=== PATIENT | male | born 1955 | race Caucasian/White ===

== ENCOUNTER 2018-11-24 18:14 | Inpatient (IN) | payer BC ==
[2018-11-24] MEDS ORDERED: ACETAMINOPHEN 325 MG TAB PO (20:00)
[2018-11-24] MEDS ORDERED: hydrALAzine 20 MG INJ IV (20:00)
[2018-11-24] MEDS ORDERED: GLUCOSE GEL 15 GRAM TUBE BUCCAL (21:00)
[2018-11-24] MEDS: INSULIN ASPART [NOVOLOG] 3 ML PEN SC (21:00)
[2018-11-24] MEDS ORDERED: GLUCOSE GEL 15 GRAM TUBE PO ×2 (21:00)
[2018-11-24] MEDS ORDERED: GLUCAGON 1 MG INJ IM (21:00)
[2018-11-24] MEDS ORDERED: DEXTROSE 50% 50 ML SYRINGE IV ×2 (21:00)
[2018-11-24 21:26] LABS: CHOL/HDL RATIO 6.8 RATIO; HDL CHOLESTEROL 41 mg/dl (30-78); LDL CHOLESTEROL,CALCULATED 198 mg/dl; TRIGLYCERIDES 210 mg/dl (0-149)
[2018-11-24 21:26] LABS: CHOLESTEROL 281 mg/dl (100-200)
[2018-11-24] MEDS: DEXTROSE 5%-0.9% NACL 1,000 ML IV (23:14)
[2018-11-25] MEDS: INSULIN ASPART [NOVOLOG] 3 ML PEN SC ×5 (01:00→16:16)
[2018-11-25 02:09] LABS: TROPONIN-I 0.013 ng/ml (0.000-0.120)
[2018-11-25] MEDS: PANTOPRAZOLE 40 MG INJ IV (05:49)
[2018-11-25 06:49] LABS: TROPONIN-I < 0.012 ng/ml (0.000-0.120)
[2018-11-25] MEDS: ACCU-CHEK XX ×3 (07:00→16:10)
[2018-11-25] MEDS: ASPIRIN 81 MG TAB PO (09:00)
[2018-11-25] MEDS: DEXTROSE 5%-0.9% NACL 1,000 ML IV (09:35)
[2018-11-25 12:37] LABS: TROPONIN-I < 0.012 ng/ml (0.000-0.120)
[2018-11-25] MEDS: ASPIRIN (EC) 81 MG TAB PO (16:10)
[2018-11-25] MEDS: LISINOPRIL 20 MG TAB PO (16:10)
[2018-11-25] MEDS: LINAGLIPTIN 5 MG TABLET PO (16:10)
[2018-11-25] MEDS: MUPIROCIN 2% 22 GM OINT TOP ×2 (16:46→20:21)
[2018-11-25] MEDS: ATORVASTATIN 40 MG TAB PO (20:20)
[2018-11-25] MEDS: INSULIN GLARGINE [LANTus] (100 UNITS/ML) SYG SC (20:26)
[2018-11-26] MEDS: PANTOPRAZOLE (EC) 40 MG TAB PO (05:04)
[2018-11-26 06:34] LABS: ADD MAN DIFF? NO
[2018-11-26 06:43] LABS: BASOPHILS % 0.6 % (0.0-2.0); EOSINOPHILS # 0.1 10^3/ul (0.0-0.5); EOSINOPHILS % 2.3 % (0.0-7.0); HEMATOCRIT 43.9 % (42.0-52.0); HEMOGLOBIN 14.2 g/dl (14.0-18.0); LYMPHOCYTES # 1.2 10^3/ul (0.8-2.9); LYMPHOCYTES % 21.8 % (15.0-51.0); MEAN CORPUSCULAR HEMOGLOBIN 26.3 pg (29.0-33.0); MEAN CORPUSCULAR HGB CONC 32.3 g/dl (32.0-37.0); MEAN CORPUSCULAR VOLUME 81.3 fl (82.0-101.0); MEAN PLATELET VOLUME 10.2 fl (7.4-10.4); MONOCYTE # 0.4 10^3/ul (0.3-0.9); NEUTROPHIL # 3.6 10^3/ul (1.6-7.5); NEUTROPHILS % 67.7 % (39.0-77.0); PLATELET COUNT 198 10^3/UL (140-415); RED CELL DISTRIBUTION WIDTH 14.7 % (11.5-14.5)
[2018-11-26 06:43] LABS: WHITE BLOOD COUNT 5.3 10^3/ul (4.8-10.8)
[2018-11-26 07:13] LABS: HEMOGLOBIN A1C 9.5 % (0-5.9)
[2018-11-26 07:15] LABS: ANION GAP 10 (5-13); BLOOD UREA NITROGEN 25 mg/dl (7-20); CALCIUM 9.3 mg/dl (8.4-10.2); CARBON DIOXIDE 25 mmol/L (21-31); CHLORIDE 106 mmol/L (97-110); CREATININE 1.32 mg/dl (0.61-1.24); Estimated GFR 54 mL/min (>60); GLUCOSE 215 mg/dl (70-220); POTASSIUM 4.3 mmol/L (3.5-5.1); SODIUM 141 mmol/L (135-144)
[2018-11-26] MEDS: ACCU-CHEK XX ×3 (07:51→17:24)
[2018-11-26] MEDS ORDERED: metFORMIN 500 MG TAB PO (08:00)
[2018-11-26] MEDS: ASPIRIN 81 MG TAB PO ×2 (08:10→09:00)
[2018-11-26] MEDS: LINAGLIPTIN 5 MG TABLET PO (08:10)
[2018-11-26] MEDS: ASPIRIN (EC) 81 MG TAB PO (08:10)
[2018-11-26] MEDS: CLOPIDOGREL 75 MG TAB PO (08:10)
[2018-11-26] MEDS: INSULIN ASPART [NOVOLOG] 3 ML PEN SC ×3 (08:13→17:24)
[2018-11-26] MEDS: METOPROLOL (XL) 100 MG TAB PO (09:00)
[2018-11-26] MEDS: LISINOPRIL 20 MG TAB PO (09:00)
[2018-11-26] MEDS: MUPIROCIN 2% 22 GM OINT TOP ×2 (09:59→21:40)
[2018-11-26] MEDS: ATORVASTATIN 40 MG TAB PO (21:39)
[2018-11-26] MEDS: INSULIN GLARGINE [LANTus] (100 UNITS/ML) SYG SC (21:42)
[2018-11-27] MEDS: PANTOPRAZOLE (EC) 40 MG TAB PO (06:34)
[2018-11-27] MEDS: INSULIN ASPART [NOVOLOG] 3 ML PEN SC ×2 (06:50→12:10)
[2018-11-27] MEDS: ACCU-CHEK XX ×2 (07:19→12:08)
[2018-11-27] MEDS: LISINOPRIL 10 MG TAB PO (08:11)
[2018-11-27] MEDS: METOPROLOL (XL) 50 MG TAB PO (08:12)
[2018-11-27] MEDS: CLOPIDOGREL 75 MG TAB PO (08:12)
[2018-11-27] MEDS: LINAGLIPTIN 5 MG TABLET PO (08:12)
[2018-11-27] MEDS: MUPIROCIN 2% 22 GM OINT TOP (08:13)
[2018-11-27] MEDS: ASPIRIN 81 MG TAB PO (08:13)
[2018-11-27] MEDS ORDERED: INSULIN ASPART [NOVOLOG] 3 ML PEN SC (18:00)
[2018-11-27] MEDS ORDERED: INSULIN GLARGINE [LANTus] (100 UNITS/ML) SYG SC (21:00)
[2018-11-28] MEDS ORDERED: ACCU-CHEK XX (02:00)
== END 2018-11-27 16:43 | DRG 66 ==
LOC: 6WM 18:14
PROVIDERS: Internal Medicine Nephrology
DX: I63.9 Cerebral infarction, unspecified (principal); E11.22 Type 2 diabetes mellitus with diabetic chronic kidney disease; E11.42 Type 2 diabetes mellitus with diabetic polyneuropathy; I10 Essential (primary) hypertension; I12.9 Hypertensive chronic kidney disease with stage 1 through stage 4 chronic kidney disease, or unspecified chronic kidney disease; N18.9 Chronic kidney disease, unspecified; I25.10 Atherosclerotic heart disease of native coronary artery without angina pectoris; E78.5 Hyperlipidemia, unspecified; E66.9 Obesity, unspecified; Z68.30 Body mass index [BMI] 30.0-30.9, adult; Z79.4 Long term (current) use of insulin; Z79.82 Long term (current) use of aspirin; Z95.1 Presence of aortocoronary bypass graft
CPT/HCPCS: 70551; 80048; 80061; 82962; 83036; 84484; 85025; 92526; 92610; 93005; 93306; 93880; 95819; 97116; 97161; 97167; 97530

== ENCOUNTER 2018-11-27 16:58 | Inpatient (IN) | payer BC ==
[2018-11-27] MEDS ORDERED: PENDING SANTYL ORDER FOR WOUND CARE XX (17:30)
[2018-11-27] MEDS ORDERED: BISACODYL 10 MG SUPP PR (17:30)
[2018-11-27] MEDS ORDERED: GLUCAGON 1 MG INJ IM (18:00)
[2018-11-27] MEDS ORDERED: hydrALAzine 20 MG INJ IV (18:00)
[2018-11-27] MEDS ORDERED: GLUCOSE GEL 15 GRAM TUBE PO ×2 (18:00)
[2018-11-27] MEDS: INSULIN ASPART [NOVOLOG] 3 ML PEN SC (21:00)
[2018-11-27] MEDS: INSULIN GLARGINE [LANTus] (100 UNITS/ML) SYG SC (21:01)
[2018-11-27] MEDS: MUPIROCIN 2% 22 GM OINT TOP (21:01)
[2018-11-27] MEDS: ACCU-CHEK XX (21:01)
[2018-11-27] MEDS: ATORVASTATIN 40 MG TAB PO (21:02)
[2018-11-27] MEDS: DOCUSATE SODIUM 100 MG CAP PO (21:02)
[2018-11-27] MEDS: SENNA TAB PO (21:02)
[2018-11-27] MEDS: ACETAMINOPHEN 325 MG TAB PO (22:19)
[2018-11-28] MEDS: ACCU-CHEK XX ×5 (02:30→21:31)
[2018-11-28] MEDS: PANTOPRAZOLE (EC) 40 MG TAB PO (05:56)
[2018-11-28 06:54] LABS: ADD MAN DIFF? NO
[2018-11-28 06:58] LABS: WHITE BLOOD COUNT 4.6 10^3/ul (4.8-10.8)
[2018-11-28 06:58] LABS: BASOPHILS % 0.7 % (0.0-2.0); EOSINOPHILS # 0.2 10^3/ul (0.0-0.5); EOSINOPHILS % 3.7 % (0.0-7.0); HEMATOCRIT 44.1 % (42.0-52.0); HEMOGLOBIN 14.3 g/dl (14.0-18.0); LYMPHOCYTES # 1.3 10^3/ul (0.8-2.9); LYMPHOCYTES % 28.9 % (15.0-51.0); MEAN CORPUSCULAR HGB CONC 32.4 g/dl (32.0-37.0); MONOCYTE # 0.4 10^3/ul (0.3-0.9); MONOCYTES % 9.6 % (0.0-11.0); NEUTROPHIL # 2.6 10^3/ul (1.6-7.5); NEUTROPHILS % 56.4 % (39.0-77.0); PLATELET COUNT 202 10^3/UL (140-415); RED BLOOD COUNT 5.51 10^6/ul (4.70-6.10); RED CELL DISTRIBUTION WIDTH 14.6 % (11.5-14.5)
[2018-11-28 07:29] LABS: ALANINE AMINOTRANSFERASE 22 IU/L (13-69); ALKALINE PHOSPHATASE 56 IU/L (42-121); ANION GAP 9 (5-13); ASPARTATE AMINO TRANSFERASE 21 IU/L (15-46); BILIRUBIN,INDIRECT 0.6 mg/dl (0-1.1); BILIRUBIN,TOTAL 0.6 mg/dl (0.2-1.3); BLOOD UREA NITROGEN 29 mg/dl (7-20); CALCIUM 9.4 mg/dl (8.4-10.2); CARBON DIOXIDE 25 mmol/L (21-31); CHLORIDE 105 mmol/L (97-110); CREATININE 1.19 mg/dl (0.61-1.24); Estimated GFR > 60 mL/min (>60); GLUCOSE 256 mg/dl (70-220); POTASSIUM 4.5 mmol/L (3.5-5.1); SODIUM 139 mmol/L (135-144)
[2018-11-28 07:30] LABS: ALBUMIN 3.9 g/dl (3.3-4.9); ALBUMIN/GLOBULIN RATIO 1.11; TOTAL PROTEIN 7.4 g/dl (6.1-8.1)
[2018-11-28] MEDS: INSULIN ASPART [NOVOLOG] 3 ML PEN SC ×7 (08:23→21:26)
[2018-11-28] MEDS: LINAGLIPTIN 5 MG TABLET PO (08:30)
[2018-11-28] MEDS: LISINOPRIL 10 MG TAB PO (08:32)
[2018-11-28] MEDS: CLOPIDOGREL 75 MG TAB PO (08:32)
[2018-11-28] MEDS: ASPIRIN 81 MG TAB PO (08:32)
[2018-11-28] MEDS: DOCUSATE SODIUM 100 MG CAP PO ×2 (08:32→21:26)
[2018-11-28] MEDS: METOPROLOL (XL) 50 MG TAB PO (08:33)
[2018-11-28] MEDS: MUPIROCIN 2% 22 GM OINT TOP ×2 (08:33→21:26)
[2018-11-28 14:00] LABS: ADD UMIC YES; UR ASCORBIC ACID NEGATIVE (NEGATIVE); UR BILIRUBIN (Dip) NEGATIVE (NEGATIVE); UR BLOOD (Dip) 1+ mg/dL (NEGATIVE); UR CLARITY CLEAR (CLEAR); UR COLOR YELLOW (YELLOW); UR GLUCOSE (Dip) 1+ mg/dL (NEGATIVE); UR KETONES (Dip) NEGATIVE (NEGATIVE); UR LEUKOCYTE ESTERASE (Dip) NEGATIVE Leu/ul (NEGATIVE); UR NITRITE (Dip) NEGATIVE (NEGATIVE); UR RBC 1 /HPF (0-5); UR SPECIFIC GRAVITY (Dip) 1.017 (1.003-1.030); UR TOTAL PROTEIN (Dip) 3+ mg/dl (NEGATIVE); UR UROBILINOGEN (Dip) NEGATIVE (NEGATIVE); UR WBC 0 /HPF (0-5)
[2018-11-28] MEDS: BALSAM PERU/CASTOR OIL 60 GM TUBE TOP (17:58)
[2018-11-28] MEDS: INSULIN GLARGINE [LANTus] (100 UNITS/ML) SYG SC (21:26)
[2018-11-28] MEDS: ATORVASTATIN 40 MG TAB PO (21:26)
[2018-11-28] MEDS: SENNA TAB PO (21:26)
[2018-11-29] MEDS: MAGNESIUM HYDROXIDE 30ML CUP PO (00:38)
[2018-11-29] MEDS: ACCU-CHEK XX ×5 (02:07→20:49)
[2018-11-29] MEDS: PANTOPRAZOLE (EC) 40 MG TAB PO (05:35)
[2018-11-29] MEDS: INSULIN ASPART [NOVOLOG] 3 ML PEN SC ×7 (08:02→20:41)
[2018-11-29] MEDS: LINAGLIPTIN 5 MG TABLET PO (08:15)
[2018-11-29] MEDS: CLOPIDOGREL 75 MG TAB PO (08:18)
[2018-11-29] MEDS: MUPIROCIN 2% 22 GM OINT TOP ×2 (08:18→21:50)
[2018-11-29] MEDS: DOCUSATE SODIUM 100 MG CAP PO ×2 (08:19→20:48)
[2018-11-29] MEDS: BALSAM PERU/CASTOR OIL 60 GM TUBE TOP (08:20)
[2018-11-29] MEDS: ASPIRIN 81 MG TAB PO (08:20)
[2018-11-29] MEDS: METOPROLOL (XL) 50 MG TAB PO ×2 (08:21→13:25)
[2018-11-29] MEDS: LISINOPRIL 10 MG TAB PO ×2 (08:22→13:25)
[2018-11-29] MEDS: INSULIN GLARGINE [LANTus] (100 UNITS/ML) SYG SC (20:42)
[2018-11-29] MEDS: ATORVASTATIN 40 MG TAB PO (20:43)
[2018-11-29] MEDS: SENNA TAB PO (20:49)
[2018-11-30] MEDS: ACCU-CHEK XX ×5 (02:32→20:31)
[2018-11-30] MEDS: LACTULOSE 30ML CUP PO (04:13)
[2018-11-30] MEDS: PANTOPRAZOLE (EC) 40 MG TAB PO (05:36)
[2018-11-30] MEDS: metFORMIN 500 MG TAB PO ×2 (07:58→17:29)
[2018-11-30] MEDS: INSULIN ASPART [NOVOLOG] 3 ML PEN SC ×7 (08:00→20:30)
[2018-11-30] MEDS: LINAGLIPTIN 5 MG TABLET PO (08:23)
[2018-11-30] MEDS: CLOPIDOGREL 75 MG TAB PO (08:23)
[2018-11-30] MEDS: DOCUSATE SODIUM 100 MG CAP PO ×2 (08:23→20:28)
[2018-11-30] MEDS: ASPIRIN 81 MG TAB PO (08:24)
[2018-11-30] MEDS: LISINOPRIL 10 MG TAB PO (09:00)
[2018-11-30] MEDS: METOPROLOL (XL) 50 MG TAB PO (09:00)
[2018-11-30] MEDS: BALSAM PERU/CASTOR OIL 60 GM TUBE TOP (09:28)
[2018-11-30] MEDS: MUPIROCIN 2% 22 GM OINT TOP ×2 (09:28→20:36)
[2018-11-30] MEDS: ATORVASTATIN 40 MG TAB PO (20:28)
[2018-11-30] MEDS: SENNA TAB PO (20:28)
[2018-11-30] MEDS: INSULIN GLARGINE [LANTus] (100 UNITS/ML) SYG SC (20:31)
[2018-12-01] MEDS: ACCU-CHEK XX ×5 (02:36→20:32)
[2018-12-01] MEDS: PANTOPRAZOLE (EC) 40 MG TAB PO (06:01)
[2018-12-01 07:09] LABS: ADD MAN DIFF? NO
[2018-12-01 07:11] LABS: WHITE BLOOD COUNT 6.9 10^3/ul (4.8-10.8)
[2018-12-01 07:11] LABS: BASOPHILS % 0.4 % (0.0-2.0); EOSINOPHILS # 0.2 10^3/ul (0.0-0.5); EOSINOPHILS % 2.3 % (0.0-7.0); HEMATOCRIT 46.7 % (42.0-52.0); HEMOGLOBIN 14.8 g/dl (14.0-18.0); LYMPHOCYTES # 1.9 10^3/ul (0.8-2.9); MEAN CORPUSCULAR HEMOGLOBIN 26.2 pg (29.0-33.0); MEAN CORPUSCULAR HGB CONC 31.7 g/dl (32.0-37.0); MEAN CORPUSCULAR VOLUME 82.8 fl (82.0-101.0); MEAN PLATELET VOLUME 10.4 fl (7.4-10.4); MONOCYTE # 0.3 10^3/ul (0.3-0.9); MONOCYTES % 4.6 % (0.0-11.0); NEUTROPHIL # 4.4 10^3/ul (1.6-7.5); PLATELET COUNT 217 10^3/UL (140-415); RED BLOOD COUNT 5.64 10^6/ul (4.70-6.10)
[2018-12-01 07:29] LABS: ANION GAP 10 (5-13); BLOOD UREA NITROGEN 45 mg/dl (7-20); CALCIUM 9.6 mg/dl (8.4-10.2); CARBON DIOXIDE 31 mmol/L (21-31); CHLORIDE 99 mmol/L (97-110); CREATININE 1.68 mg/dl (0.61-1.24); Estimated GFR 41 mL/min (>60); GLUCOSE 222 mg/dl (70-220); POTASSIUM 4.4 mmol/L (3.5-5.1); SODIUM 140 mmol/L (135-144)
[2018-12-01] MEDS: INSULIN ASPART [NOVOLOG] 3 ML PEN SC ×7 (07:59→20:26)
[2018-12-01] MEDS: metFORMIN 500 MG TAB PO ×2 (08:00→17:50)
[2018-12-01] MEDS: METOPROLOL (XL) 50 MG TAB PO (08:01)
[2018-12-01] MEDS: ASPIRIN 81 MG TAB PO (08:01)
[2018-12-01] MEDS: DOCUSATE SODIUM 100 MG CAP PO ×2 (08:01→20:23)
[2018-12-01] MEDS: CLOPIDOGREL 75 MG TAB PO (08:01)
[2018-12-01] MEDS: LINAGLIPTIN 5 MG TABLET PO (08:02)
[2018-12-01] MEDS: MUPIROCIN 2% 22 GM OINT TOP ×2 (08:02→20:32)
[2018-12-01] MEDS: LISINOPRIL 5 MG TAB PO (08:02)
[2018-12-01] MEDS: BALSAM PERU/CASTOR OIL 60 GM TUBE TOP (08:02)
[2018-12-01] MEDS: ENOXAPARIN 40 MG/0.4 ML SYG SC (08:18)
[2018-12-01] MEDS: SENNA TAB PO (20:23)
[2018-12-01] MEDS: ATORVASTATIN 40 MG TAB PO (20:23)
[2018-12-01] MEDS: INSULIN GLARGINE [LANTus] (100 UNITS/ML) SYG SC (20:27)
[2018-12-02] MEDS: ACCU-CHEK XX ×5 (02:04→20:20)
[2018-12-02] MEDS: PANTOPRAZOLE (EC) 40 MG TAB PO (06:01)
[2018-12-02 06:59] LABS: ADD UMIC YES; UR ASCORBIC ACID NEGATIVE (NEGATIVE); UR BILIRUBIN (Dip) NEGATIVE (NEGATIVE); UR BLOOD (Dip) NEGATIVE (NEGATIVE); UR CLARITY CLEAR (CLEAR); UR COLOR YELLOW (YELLOW); UR GLUCOSE (Dip) NEGATIVE (NEGATIVE); UR KETONES (Dip) NEGATIVE (NEGATIVE); UR LEUKOCYTE ESTERASE (Dip) NEGATIVE Leu/ul (NEGATIVE); UR MUCUS FEW /HPF (NONE SEEN); UR NITRITE (Dip) NEGATIVE (NEGATIVE); UR RBC 0 /HPF (0-5); UR SPECIFIC GRAVITY (Dip) 1.016 (1.003-1.030); UR TOTAL PROTEIN (Dip) 2+ mg/dl (NEGATIVE); UR UROBILINOGEN (Dip) NEGATIVE (NEGATIVE); UR WBC 0 /HPF (0-5)
[2018-12-02 07:21] LABS: ADD MAN DIFF? NO
[2018-12-02 07:24] LABS: BASOPHILS % 0.6 % (0.0-2.0); EOSINOPHILS # 0.2 10^3/ul (0.0-0.5); EOSINOPHILS % 2.9 % (0.0-7.0); HEMATOCRIT 46.1 % (42.0-52.0); HEMOGLOBIN 14.5 g/dl (14.0-18.0); LYMPHOCYTES # 1.5 10^3/ul (0.8-2.9); LYMPHOCYTES % 29.6 % (15.0-51.0); MEAN CORPUSCULAR HEMOGLOBIN 26.1 pg (29.0-33.0); MEAN CORPUSCULAR HGB CONC 31.5 g/dl (32.0-37.0); MEAN CORPUSCULAR VOLUME 83.1 fl (82.0-101.0); MEAN PLATELET VOLUME 10.6 fl (7.4-10.4); MONOCYTE # 0.3 10^3/ul (0.3-0.9); MONOCYTES % 6.3 % (0.0-11.0); NEUTROPHIL # 3.1 10^3/ul (1.6-7.5); NEUTROPHILS % 59.8 % (39.0-77.0); PLATELET COUNT 214 10^3/UL (140-415); RED BLOOD COUNT 5.55 10^6/ul (4.70-6.10); RED CELL DISTRIBUTION WIDTH 15.3 % (11.5-14.5)
[2018-12-02 07:24] LABS: WHITE BLOOD COUNT 5.2 10^3/ul (4.8-10.8)
[2018-12-02] MEDS: INSULIN ASPART [NOVOLOG] 3 ML PEN SC ×7 (07:35→20:03)
[2018-12-02 07:46] LABS: ANION GAP 8 (5-13); BLOOD UREA NITROGEN 39 mg/dl (7-20); CALCIUM 9.7 mg/dl (8.4-10.2); CARBON DIOXIDE 30 mmol/L (21-31); CHLORIDE 103 mmol/L (97-110); CREATININE 1.41 mg/dl (0.61-1.24); Estimated GFR 50 mL/min (>60); GLUCOSE 135 mg/dl (70-220); SODIUM 141 mmol/L (135-144)
[2018-12-02 07:49] LABS: POTASSIUM 5.3 mmol/L (3.5-5.1)
[2018-12-02] MEDS: metFORMIN 500 MG TAB PO ×2 (07:49→17:16)
[2018-12-02] MEDS: LINAGLIPTIN 5 MG TABLET PO (07:49)
[2018-12-02] MEDS: ASPIRIN 81 MG TAB PO (08:42)
[2018-12-02] MEDS: CLOPIDOGREL 75 MG TAB PO (08:43)
[2018-12-02] MEDS: METOPROLOL (XL) 50 MG TAB PO (08:43)
[2018-12-02] MEDS: LISINOPRIL 5 MG TAB PO (08:43)
[2018-12-02] MEDS: DOCUSATE SODIUM 100 MG CAP PO ×2 (08:43→20:15)
[2018-12-02] MEDS: ENOXAPARIN 40 MG/0.4 ML SYG SC (08:44)
[2018-12-02] MEDS: BALSAM PERU/CASTOR OIL 60 GM TUBE TOP (08:47)
[2018-12-02] MEDS: MUPIROCIN 2% 22 GM OINT TOP (08:47)
[2018-12-02 14:56] LABS: POTASSIUM 5.1 mmol/L (3.5-5.1)
[2018-12-02] MEDS: INSULIN GLARGINE [LANTus] (100 UNITS/ML) SYG SC (20:14)
[2018-12-02] MEDS: ATORVASTATIN 40 MG TAB PO (20:15)
[2018-12-02] MEDS: SENNA TAB PO (20:15)
[2018-12-03] MEDS: ACCU-CHEK XX ×5 (02:00→21:15)
[2018-12-03] MEDS: PANTOPRAZOLE (EC) 40 MG TAB PO (06:45)
[2018-12-03 07:30] LABS: ADD MAN DIFF? NO
[2018-12-03 07:31] LABS: BASOPHILS % 0.7 % (0.0-2.0); EOSINOPHILS # 0.2 10^3/ul (0.0-0.5); EOSINOPHILS % 2.9 % (0.0-7.0); HEMOGLOBIN 13.7 g/dl (14.0-18.0); LYMPHOCYTES # 1.4 10^3/ul (0.8-2.9); LYMPHOCYTES % 25.7 % (15.0-51.0); MEAN CORPUSCULAR HEMOGLOBIN 26.6 pg (29.0-33.0); MEAN CORPUSCULAR HGB CONC 31.9 g/dl (32.0-37.0); MEAN CORPUSCULAR VOLUME 83.5 fl (82.0-101.0); MEAN PLATELET VOLUME 10.7 fl (7.4-10.4); MONOCYTE # 0.5 10^3/ul (0.3-0.9); MONOCYTES % 9.3 % (0.0-11.0); NEUTROPHIL # 3.4 10^3/ul (1.6-7.5); NEUTROPHILS % 60.7 % (39.0-77.0); PLATELET COUNT 203 10^3/UL (140-415); RED BLOOD COUNT 5.15 10^6/ul (4.70-6.10)
[2018-12-03 07:31] LABS: WHITE BLOOD COUNT 5.6 10^3/ul (4.8-10.8)
[2018-12-03] MEDS: metFORMIN 500 MG TAB PO (07:41)
[2018-12-03] MEDS: LINAGLIPTIN 5 MG TABLET PO (07:42)
[2018-12-03] MEDS: INSULIN ASPART [NOVOLOG] 3 ML PEN SC ×7 (07:45→21:00)
[2018-12-03 07:53] LABS: ANION GAP 10 (5-13); BLOOD UREA NITROGEN 40 mg/dl (7-20); CALCIUM 9.5 mg/dl (8.4-10.2); CARBON DIOXIDE 30 mmol/L (21-31); CHLORIDE 102 mmol/L (97-110); CREATININE 1.49 mg/dl (0.61-1.24); Estimated GFR 47 mL/min (>60); GLUCOSE 170 mg/dl (70-220); POTASSIUM 5.4 mmol/L (3.5-5.1); SODIUM 142 mmol/L (135-144)
[2018-12-03] MEDS: DOCUSATE SODIUM 100 MG CAP PO ×2 (08:25→21:13)
[2018-12-03] MEDS: LISINOPRIL 5 MG TAB PO (08:25)
[2018-12-03] MEDS: ASPIRIN 81 MG TAB PO (08:26)
[2018-12-03] MEDS: CLOPIDOGREL 75 MG TAB PO (08:26)
[2018-12-03] MEDS: METOPROLOL (XL) 50 MG TAB PO (08:26)
[2018-12-03] MEDS: BALSAM PERU/CASTOR OIL 60 GM TUBE TOP (08:28)
[2018-12-03] MEDS: ENOXAPARIN 40 MG/0.4 ML SYG SC (08:43)
[2018-12-03] MEDS: SODIUM POLYSTYRENE 15 GM KIT (POWDER + SORBITOL) PO (12:23)
[2018-12-03] MEDS: NA POLYST SULFON 15 GM/60 ML BTL PO (12:29)
[2018-12-03] MEDS ORDERED: SODIUM POLYSTYRENE 15 GM KIT (POWDER + SORBITOL) PO (12:30)
[2018-12-03] MEDS: SENNA TAB PO (21:13)
[2018-12-03] MEDS: ATORVASTATIN 40 MG TAB PO (21:13)
[2018-12-03] MEDS: INSULIN GLARGINE [LANTus] (100 UNITS/ML) SYG SC (21:15)
[2018-12-04] MEDS: ACCU-CHEK XX ×5 (02:00→21:02)
[2018-12-04] MEDS: PANTOPRAZOLE (EC) 40 MG TAB PO (06:28)
[2018-12-04 06:56] LABS: ANION GAP 9 (5-13); BLOOD UREA NITROGEN 40 mg/dl (7-20); CALCIUM 9.5 mg/dl (8.4-10.2); CARBON DIOXIDE 31 mmol/L (21-31); CHLORIDE 102 mmol/L (97-110); CREATININE 1.51 mg/dl (0.61-1.24); Estimated GFR 47 mL/min (>60); GLUCOSE 145 mg/dl (70-220); POTASSIUM 4.3 mmol/L (3.5-5.1); SODIUM 142 mmol/L (135-144)
[2018-12-04] MEDS: INSULIN ASPART [NOVOLOG] 3 ML PEN SC ×7 (07:35→20:30)
[2018-12-04] MEDS: LINAGLIPTIN 5 MG TABLET PO (07:56)
[2018-12-04] MEDS: CLOPIDOGREL 75 MG TAB PO (12:22)
[2018-12-04] MEDS: ASPIRIN 81 MG TAB PO (12:23)
[2018-12-04] MEDS: DOCUSATE SODIUM 100 MG CAP PO ×2 (12:23→20:27)
[2018-12-04] MEDS: METOPROLOL (XL) 50 MG TAB PO (12:23)
[2018-12-04] MEDS: ENOXAPARIN 40 MG/0.4 ML SYG SC (12:24)
[2018-12-04] MEDS: BALSAM PERU/CASTOR OIL 60 GM TUBE TOP (12:25)
[2018-12-04] MEDS: SOD CHLORIDE 0.9% 1,000 ML IV (12:47)
[2018-12-04] MEDS: SENNA TAB PO (20:27)
[2018-12-04] MEDS: ATORVASTATIN 40 MG TAB PO (20:27)
[2018-12-04] MEDS: INSULIN GLARGINE [LANTus] (100 UNITS/ML) SYG SC (20:28)
[2018-12-05] MEDS: ACCU-CHEK XX ×5 (02:00→20:45)
[2018-12-05] MEDS: PANTOPRAZOLE (EC) 40 MG TAB PO (06:34)
[2018-12-05] MEDS: INSULIN ASPART [NOVOLOG] 3 ML PEN SC ×8 (07:35→20:44)
[2018-12-05 07:46] LABS: ANION GAP 7 (5-13); BLOOD UREA NITROGEN 30 mg/dl (7-20); CALCIUM 9.1 mg/dl (8.4-10.2); CARBON DIOXIDE 28 mmol/L (21-31); CHLORIDE 106 mmol/L (97-110); CREATININE 1.31 mg/dl (0.61-1.24); Estimated GFR 55 mL/min (>60); GLUCOSE 117 mg/dl (70-220); POTASSIUM 3.9 mmol/L (3.5-5.1); SODIUM 141 mmol/L (135-144)
[2018-12-05] MEDS: LINAGLIPTIN 5 MG TABLET PO (08:13)
[2018-12-05] MEDS: DOCUSATE SODIUM 100 MG CAP PO ×2 (08:59→20:39)
[2018-12-05] MEDS: ASPIRIN 81 MG TAB PO (08:59)
[2018-12-05] MEDS: METOPROLOL (XL) 50 MG TAB PO (08:59)
[2018-12-05] MEDS: CLOPIDOGREL 75 MG TAB PO (09:00)
[2018-12-05] MEDS: BALSAM PERU/CASTOR OIL 60 GM TUBE TOP (09:00)
[2018-12-05] MEDS: ENOXAPARIN 30 MG/0.3 ML SYG SC (09:01)
[2018-12-05] MEDS: SENNA TAB PO (20:39)
[2018-12-05] MEDS: ATORVASTATIN 40 MG TAB PO (20:39)
[2018-12-05] MEDS: INSULIN GLARGINE [LANTus] (100 UNITS/ML) SYG SC (20:41)
[2018-12-06] MEDS: ACCU-CHEK XX ×5 (02:00→21:00)
[2018-12-06] MEDS: PANTOPRAZOLE (EC) 40 MG TAB PO (06:21)
[2018-12-06] MEDS: INSULIN ASPART [NOVOLOG] 3 ML PEN SC ×7 (07:35→21:27)
[2018-12-06] MEDS: LINAGLIPTIN 5 MG TABLET PO (08:09)
[2018-12-06] MEDS: DOCUSATE SODIUM 100 MG CAP PO ×2 (09:12→21:24)
[2018-12-06] MEDS: CLOPIDOGREL 75 MG TAB PO (09:14)
[2018-12-06] MEDS: METOPROLOL (XL) 50 MG TAB PO (09:16)
[2018-12-06] MEDS: ENOXAPARIN 30 MG/0.3 ML SYG SC (09:17)
[2018-12-06] MEDS: BALSAM PERU/CASTOR OIL 60 GM TUBE TOP (09:17)
[2018-12-06] MEDS: ASPIRIN 81 MG TAB PO (09:18)
[2018-12-06] MEDS: ATORVASTATIN 40 MG TAB PO (21:24)
[2018-12-06] MEDS: SENNA TAB PO (21:25)
[2018-12-06] MEDS: INSULIN GLARGINE [LANTus] (100 UNITS/ML) SYG SC (21:28)
[2018-12-07] MEDS: ACCU-CHEK XX ×3 (02:00→11:30)
[2018-12-07] MEDS: PANTOPRAZOLE (EC) 40 MG TAB PO (06:27)
[2018-12-07] MEDS: INSULIN ASPART [NOVOLOG] 3 ML PEN SC ×4 (07:44→11:38)
[2018-12-07 07:45] LABS: ANION GAP 10 (5-13); BLOOD UREA NITROGEN 28 mg/dl (7-20); CALCIUM 9.2 mg/dl (8.4-10.2); CARBON DIOXIDE 28 mmol/L (21-31); CHLORIDE 103 mmol/L (97-110); CREATININE 1.16 mg/dl (0.61-1.24); Estimated GFR > 60 mL/min (>60); GLUCOSE 173 mg/dl (70-220); POTASSIUM 4.3 mmol/L (3.5-5.1); SODIUM 141 mmol/L (135-144)
[2018-12-07] MEDS: LINAGLIPTIN 5 MG TABLET PO (07:45)
[2018-12-07] MEDS: CLOPIDOGREL 75 MG TAB PO (08:51)
[2018-12-07] MEDS: DOCUSATE SODIUM 100 MG CAP PO (08:51)
[2018-12-07] MEDS: ASPIRIN 81 MG TAB PO (08:51)
[2018-12-07] MEDS: METOPROLOL (XL) 50 MG TAB PO (08:52)
[2018-12-07] MEDS: ENOXAPARIN 30 MG/0.3 ML SYG SC (08:56)
[2018-12-07] MEDS: BALSAM PERU/CASTOR OIL 60 GM TUBE TOP (08:58)
== END 2018-12-07 11:30 | disposition home health service (06) | DRG 57 ==
LOC: VRC 16:58
PROVIDERS: Internal Medicine
PROC: F07Z5ZZ Bed Mobility Treatment (ICD-10-PCS; principal; 2018-11-28)
PROC: F07Z8ZZ Transfer Training Treatment (ICD-10-PCS; 2018-11-28)
PROC: F07Z9ZZ Gait Training/Functional Ambulation Treatment (ICD-10-PCS; 2018-11-28)
PROC: F08Z0ZZ Bathing/Showering Techniques Treatment (ICD-10-PCS; 2018-11-28)
PROC: F08Z1ZZ Dressing Techniques Treatment (ICD-10-PCS; 2018-11-28)
PROC: F08Z2ZZ Grooming/Personal Hygiene Treatment (ICD-10-PCS; 2018-11-28)
DX: I69.351 Hemiplegia and hemiparesis following cerebral infarction affecting right dominant side (principal); N17.9 Acute kidney failure, unspecified; E11.22 Type 2 diabetes mellitus with diabetic chronic kidney disease; E11.65 Type 2 diabetes mellitus with hyperglycemia; E87.5 Hyperkalemia; E78.5 Hyperlipidemia, unspecified; E66.9 Obesity, unspecified; I25.10 Atherosclerotic heart disease of native coronary artery without angina pectoris; I12.9 Hypertensive chronic kidney disease with stage 1 through stage 4 chronic kidney disease, or unspecified chronic kidney disease; N18.9 Chronic kidney disease, unspecified; Z74.09 Other reduced mobility; Z95.1 Presence of aortocoronary bypass graft; Z68.30 Body mass index [BMI] 30.0-30.9, adult; Z79.4 Long term (current) use of insulin; Z79.82 Long term (current) use of aspirin; Z79.02 Long term (current) use of antithrombotics/antiplatelets
CPT/HCPCS: 80048; 80053; 81001; 82962; 84132; 85025; 87081; 87086; 92523; 97110; 97112; 97116; 97150; 97163; 97166; 97530; 97535